=== PATIENT | female | born 1960 | race Caucasian/White ===

== ENCOUNTER 2020-04-07 23:35 | Inpatient (IN) ==
--- OUTSIDE RECORDS SUMMARY | 2020-04-07 23:39 | External Medical Summary | Continuity of Care Document ---
:1960 Author Name Demetria Del Angel Address Unavailable Unavailable , Care Team Providers Name Role Phone Dulce Lindo [email or web address] PCP, UNKNOWN Unavailable Unavailable Problems Active medical history not documented Allergies and Adverse Reactions Allergy history not documented Medications Medications not documented Procedures Procedures not documented Immunizations Immunizations not documented Plan of Treatment Planned Observations Planned Goals not documented Results No Known Results Results not documented
[2020-04-07] MEDS ORDERED: KETOROLAC 30 MG/ML VIAL IV STA (23:52)
--- NOTE | 2020-04-07 23:52 | Emergency Department Note ---
History of Present Illness General Chief Complaint: Chest Pain Stated Complaint: CHEST PAIN Time Seen by Provider: 04/07/20 23:39 Source: patient Mode of arrival: ambulatory Limitations: no limitations History of Present Illness Provider Complaint: chest pain This is a 60-year-old female who presents to the ED with a chief complaint of right-sided chest pain that started at 1 PM today. She states that it is worse with inspiration. She went home and took a nap after work and woke up around 10 PM with a 10 out of 10 chest pain that she describes as sharp in her right chest that radiates to the right shoulder and worse with inspiration. Denies any pain or swelling in the legs but did have some calf pain yesterday. She denies any shortness of breath. No fevers. She does have an occasional cough. She rep orts a history of asthma. Home Medications Home Medications Medication Instructions Recorded Confirmed Type albuterol sulfate 2 puff INHALATION Q6H PRN 04/08/20 04/08/20 History Allergies Allergy/AdvReac Type Severity Reaction Status Date / Time aspirin Allergy Unknown Verified 04/08/20 01:22 ibuprofen [From Motrin IB] Allergy Unknown Verified 04/08/20 01:22 oxycodone [From Percodan] Allergy Unknown Verified 04/08/20 01:22 Past Med/Surg History Social History Smoking Status: Former smoker Feels Safe at Home: Yes Review of Systems A total of 10 systems reviewed and were otherwise negative Physical Exam Vital Signs Vital Signs - 24 hr 04/07/20 23:40 04/08/20 00:00 04/08/20 00:01 Temperature 36.8 C Temperature Source Oral Pulse Rate 77 77 73 Pulse Rate [Left Finger] Pulse Rate from SpO2 Sensor 73 Pulse Rhythm Regular Respiratory Rate 20 20 19 Respiratory Effort / Characteristics Non-Labored Spontaneous Respiratory Depth Normal Respiratory Pattern Regular Blood Pressure 107/65 104/64 Blood Pressure [Right Arm] Blood Pressure Mean 79 83 Blood Pressure Mean [Right Arm] Blood Pressure Position Lying Blood Pressure Position [Right Arm] Pulse Oximetry 95 95 94 Oxygen Delivery Method Room Air Room Air Room Air Sepsis Recent Fever Within 48 Hours No Sepsis New/Unexplained Change in Mental Status N/A Sepsis Action Taken by Nursing No Action Required 04/08/20 00:52 Temperature Temperature Source Pulse Rate Pulse Rate [Left Finger] 59 L Pulse Rate from SpO2 Sensor Pulse Rhythm Respiratory Rate 20 Respiratory Effort / Characteristics Respiratory Depth Respiratory Pattern Blood Pressure Blood Pressure [Right Arm] 101/66 Blood Pressure Mean Blood Pressure Mean [Right Arm] 77 Blood Pressure Position Blood Pressure Position [Right Arm] Sitting Pulse Oximetry 96 Oxygen Delivery Method Room Air Sepsis Recent Fever Within 48 Hours Sepsis New/Unexplained Change in Mental Status Sepsis Action Taken by Nursing CONSTITUTIONAL/VITAL SIGNS: Reviewed / noted above. GENERAL: Non-toxic in appearance. INTEGUMENTARY: Warm, dry, and [place]. HEAD: Normocephalic. EYES: without scleral icterus or trauma. ENT/OROPHARYNX: clear and moist. LYMPHADENOPATHY/NECK: Is supple without lymphadenopathy or meningismus. RESPIRATORY: Lungs clear and equal. CARDIOVASCULAR: Regular rate and rhythm. GI/ABDOMEN: Soft and nontender. No organomegaly or pulsatile mass. No rebound or guarding. Normal bowel sounds. EXTREMITIES: Warm and well perfused. BACK: No CVA tenderness. NEUROLOGICAL: Intact without focal deficits. PSYCHIATRIC: normal affect. MUSCULOSKELETAL: Normally developed with good muscle tone. TRIAGE NURSING DOCUMENTATION REVIEWED. Course Administered Medications Discontinued Medications Ioversol (Optiray 320 125ml) 125 ml IV ONCE ONE Stop: 04/08/20 00:50 Last Admin: 04/08/20 00:49 Dose: 81 ml Documented by: [id number] Ketorolac Tromethamine (Ketorolac 30 Mg/Ml Vial) 30 mg IV NOW STA Stop: 04/07/20 23:53 Last Admin: 04/08/20 00:14 Dose: 30 mg Documented by: [id number] Medical Decision Making Differential Diagnosis The differential that was considered includes acute myocardial infarction, acute coronary syndrome, myocarditis, pericarditis, pericardial effusions /tamponade, esophageal perforation, thoracic aortic dissection, pulmonary embolism, pneumonia, pneumothorax, pancreatitis, shingles, acute cholecystitis, perforated abdominal viscus. Medical Records Attestation: I reviewed the patient's medical records. Home Medications Current Medication List: was personally reviewed by me Laboratory Data Attestation: I reviewed the patient's lab results. Result diagrams: 04/07/20 23:41 04/07/20 23:41 Labs: Lab Results 04/07/20 04/07/20 04/07/20 Range/Units 23:41 23:41 23:41 WBC 11.48 H (4.8-10.8) K/uL RBC 4.56 (4.2-5.4) M/uL Hgb 13.5 (12.0-16.0) g/dL Hct 41.3 (37-47) % MCV 90.6 (80-100) fL MCH 29.6 (25-34) pg MCHC 32.7 (32-36) g/dL RDW Std Deviation 45.0 (36.4-46.3) fL RDW Coeff of Kendra 13.6 (11.5-14.5) % Plt Count 219 (130-400) K/uL MPV 11.6 H (7.4-10.4) fL Immature Gran % (Auto) 0.1 % Neut % (Auto) 78.2 % Lymph % (Auto) 13.3 % [place] % (Auto) 7.7 % Eos % (Auto) 0.6 % Baso % (Auto) 0.1 % Neut # (Auto) 8.98 H (1.4-6.5) K/uL Lymph # (Auto) 1.53 (1.2-3.4) K/uL [place] # (Auto) 0.88 H (0.11-0.59) K/uL Eos # (Auto) 0.07 (0-0.5) K/uL Baso # (Auto) 0.01 (0-0.2) K/uL Immature Gran # (Auto) 0.01 (0.00-0.02) K/uL PT 10.4 (9.0-12.0) Seconds INR 1.0 (0.9-1.1) APTT 28.2 (21.0-31.0) Seconds PTT Ratio 1.0 D-Dimer Cancelled Sodium 140 (136-145) mmol/L Potassium 3.9 (3.5-5.1) mmol/L Chloride 108 H (98-107) mmol/L Carbon Dioxide 27 (21-32) mmol/L Anion Gap 5.0 (3-11) BUN 12 (7-18) mg/dl Creatinine 1.03 (0.6-1.2) mg/dl Est Cr Clr Drug Dosing 54.3 ml/min Est GFR ( Amer) 67.5 Est GFR (Non-Af Amer) 58.2 BUN/Creatinine Ratio 11.4 (10-20) Glucose 114 H (70-99) mg/dl Calcium 8.9 (8.5-10.1) mg/dl Total Bilirubin 0.5 (0.2-1) mg/dl AST 21 (15-37) U/L ALT 42 (12-78) U/L Alkaline Phosphatase 116 (45-117) U/L Troponin I < 0.015 (0-0.045) ng/ml Total Protein 7.7 (6.4-8.2) gm/dl Albumin 3.4 (3.4-5.0) gm/dl Globulin 4.3 H (2.5-4.0) gm/dl Albumin/Globulin Ratio 0.8 L (0.9-2) Lipase 209 (73-393) U/L 04/07/20 Range/Units 23:41 WBC (4.8-10.8) K/uL RBC (4.2-5.4) M/uL Hgb (12.0-16.0) g/dL Hct (37-47) % MCV (80-100) fL MCH (25-34) pg MCHC (32-36) g/dL RDW Std Deviation (36.4-46.3) fL RDW Coeff of Kendra (11.5-14.5) % Plt Count (130-400) K/uL MPV (7.4-10.4) fL Immature Gran % (Auto) % Neut % (Auto) % Lymph % (Auto) % [place] % (Auto) % Eos % (Auto) % Baso % (Auto) % Neut # (Auto) (1.4-6.5) K/uL Lymph # (Auto) (1.2-3.4) K/uL [place] # (Auto) (0.11-0.59) K/uL Eos # (Auto) (0-0.5) K/uL Baso # (Auto) (0-0.2) K/uL Immature Gran # (Auto) (0.00-0.02) K/uL PT (9.0-12.0) Seconds INR (0.9-1.1) APTT (21.0-31.0) Seconds PTT Ratio D-Dimer 1090 H* Sodium (136-145) mmol/L Potassium (3.5-5.1) mmol/L Chloride (98-107) mmol/L Carbon Dioxide (21-32) mmol/L Anion Gap (3-11) BUN (7-18) mg/dl Creatinine (0.6-1.2) mg/dl Est Cr Clr Drug Dosing ml/min Est GFR ( Amer) Est GFR (Non-Af Amer) BUN/Creatinine Ratio (10-20) Glucose (70-99) mg/dl Calcium (8.5-10.1) mg/dl Total Bilirubin (0.2-1) mg/dl AST (15-37) U/L ALT (12-78) U/L Alkaline Phosphatase (45-117) U/L Troponin I (0-0.045) ng/ml Total Protein (6.4-8.2) gm/dl Albumin (3.4-5.0) gm/dl Globulin (2.5-4.0) gm/dl Albumin/Globulin Ratio (0.9-2) Lipase (73-393) U/L Imaging Data Chest x-ray: Attestation: I personally reviewed and interpreted this imaging study as follows: My impression: Chest x-ray: Per my interpretation is negative for acute disease Radiologist's impression: CT scan of the chest: Filling defects identified in the right middle lobe and right lower lobe consistent with pulmonary emboli. ECG Data Attestation: I personally reviewed and interpreted this ECG as follows: Indication: chest pain Rate (beats per minute): 78 Rhythm: normal sinus Findings: no PVC and no ST elevation MDM Narrative The patient has a pleuritic right-sided chest pain. Her twelve-lead EKG shows a normal sinus rhythm. Her exam was relatively unremarkable. CBC is normal. Chemistry panel was unremarkable. Troponin is negative. Lipase is negative. D-dimer is elevated at 1090. CT scan of the chest: Shows findings suggesting right sided middle and lower lobe pulmonary emboli. The patient was started on IV heparin. She will be seen by the hospitalist for further inpatient evaluat ion and care. Impression & Plan Pulmonary emboli Discharge Plan Visit Data Chief Complaint: Chest Pain Stated Complaint: CHEST PAIN ED Provider: Mateo Mariscal Discharge Problem: Pulmonary emboli Patient Disposition: Being Evaluated by Hospitalist Forms Stand Alone Forms: My [facility] Prescriptions Prescriptions: No Action albuterol sulfate 90 mcg/actuation Hfa Aerosol Inhaler 2 puff INHALATION Q6H PRN (Reason: Shortness Of Breath Or Wheezing) RF: 0 Referrals Referrals: Dirk Hu MD [Primary Care Provider] - Discharge Problem: Pulmonary emboli Qualifiers: Pulmonary embolism type: multiple subsegmental (without acute cor pulmonale) Qualified Code(s): I26.94 - Multiple subsegmental pulmonary emboli without acute cor pulmonale
[2020-04-07 23:53] LABS: Basophils # (auto) 0.01 K/uL (0-0.2); Basophils % (auto) 0.1 %; Eosinophils # (auto) 0.07 K/uL (0-0.5); Eosinophils % (auto) 0.6 %; Hematocrit (blood only) 41.3 % (37-47); Hemoglobin 13.5 g/dL (12.0-16.0); Immature Granulocytes # (auto) 0.01 K/uL (0.00-0.02); Immature Granulocytes % (auto) 0.1 %; Lymphocytes # (auto) 1.53 K/uL (1.2-3.4); Lymphocytes % (auto) 13.3 %; Mean Corpuscular Hemoglobin 29.6 pg (25-34); Mean Corpuscular Hgb Conc 32.7 g/dL (32-36); Mean Corpuscular Volume 90.6 fL (80-100); Mean Platelet Volume 11.6 fL (7.4-10.4); Monocytes # (auto) 0.88 K/uL (0.11-0.59); Monocytes % (auto) 7.7 %; Neutrophils # (auto) 8.98 K/uL (1.4-6.5); Neutrophils % (auto) 78.2 %; Platelet Count 219 K/uL (130-400); RDW Coefficient of Variation 13.6 % (11.5-14.5); Red Blood Count 4.56 M/uL (4.2-5.4); White Blood Count 11.48 K/uL (4.8-10.8)
[2020-04-08 00:03] LABS: Partial Thromboplastin Time 28.2 Seconds (21.0-31.0); Prothrombin Time 10.4 Seconds (9.0-12.0)
[2020-04-08 00:14] LABS: Alanine Aminotransferase 42 U/L (12-78); Albumin Level 3.4 gm/dl (3.4-5.0); Aspartate Aminotransferase 21 U/L (15-37); BUN Creatinine Ratio 11.4 (10-20); Blood Urea Nitrogen 12 mg/dl (7-18); Calcium 8.9 mg/dl (8.5-10.1); Carbon Dioxide 27 mmol/L (21-32); Chloride 108 mmol/L (98-107); Creatinine Clr Calc Pharmacy 54.3 ml/min; Est GFR (African American) 67.5; Est GFR (Non-African American) 58.2; Glucose 114 mg/dl (70-99); Lipase 209 U/L (73-393); Potassium 3.9 mmol/L (3.5-5.1); Sodium 140 mmol/L (136-145)
[2020-04-08 00:19] LABS: Albumin Globulin Ratio 0.8 (0.9-2); Alkaline Phosphatase 116 U/L (45-117); Bilirubin,Total 0.5 mg/dl (0.2-1); Globulin 4.3 gm/dl (2.5-4.0); Total Protein 7.7 gm/dl (6.4-8.2); Troponin I < 0.015 ng/ml (0-0.045)
[2020-04-08 00:24] LABS: D Dimer 1090 ug/L FEU (0-500)
[2020-04-08] MEDS ORDERED: OPTIRAY 320 125ml IV ONE (00:49)
[2020-04-08] MEDS ORDERED: HEPARIN SOD 5,000 UNIT/0.5 ML VIAL ONE (01:51)
[2020-04-08] MEDS ORDERED: Heparin BOLUS **ED Use Only IV STA (02:16)
[2020-04-08] MEDS: HEPARIN SODIUM/DEXTROSE 25,000 UNITS/500 ML BAG IV SCH (02:21)
[2020-04-08] MEDS ORDERED: HYDROmorphone INJ 0.5 MG/0.5 ML SYR IV PRN (03:29)
[2020-04-08] MEDS ORDERED: ONDANSETRON INJ 2 MG/ML 2 ML VIAL ONE (03:53)
[2020-04-08] MEDS ORDERED: ONDANSETRON INJ 2 MG/ML 2 ML VIAL IV STA (03:54)
--- NOTE | 2020-04-08 04:45 | History and Physical Report ---
DATE OF ADMISSION: 04/07/2020 CHIEF COMPLAINT: Chest pain. HISTORY OF PRESENT ILLNESS: This is a 60-year-old female with past medical history significant for allergic rhinitis, asthma, history of premature beats, irritable bowel syndrome, history of calculus of kidney , history of Lyme disease in the past, who comes because of right-sided chest pain. 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 Today after work she came home and went to sleep and when woke up around 1:00pm in the afternoon, she had severe chest pain in the right side radiating to the right shoulder, it was 6/10 in severity, associated with shortness of breath and some nausea. When it was not getting better, she came to the ER and found to have PE. The patient says when she went to bathroom and came back, she was short of breath and she was having significant pain. Hemodynamics were stable. Denies any headache, no blurred vision, no earache. She has some runny nose and attributes it to her allergies and some mild sore throat due to postnasal drip. She has occasional cough from her asthma. She denies any loss of sense of smell or taste. She states since she works in the ER, she was tested for COVID 2 weeks ago and was negative as per the patient. No abdominal pain. Normal bowel and bladder movements. No hematuria, no blood in stools or black stools. She had some right calf pain a few days back, but that has resolved. No swelling in the legs. ALLERGIES: ASPIRIN, IBUPROFEN, PERCODAN. PAST MEDICAL HISTORY: As mentioned above. PAST SURGICAL HISTORY: Cardiac ablation for Nahlp-Aafawvukb-Bdfwu syndrome, colonoscopy, colposcopy, cyrocautery of cervix, cystoscopy, laparoscopic cholecystectomy, appendectomy. MEDICATIONS: Albuterol 2 puffs inhalation q. 6 hours p.r.n. FAMILY HISTORY: Significant for mother has heart disorder, hypertension; father had calculi; maternal grandfather has history of TB; sister has allergies and asthma. SOCIAL HISTORY: Lives with daughter and grandchildren. Quit smoking in 1984. Alcohol occasionally. No drug use. REVIEW OF SYSTEMS: As per HPI. Rest of the review of systems negative. PHYSICAL EXAMINATION: GENERAL: The patient is of moderate build, not in acute distress. VITAL SIGNS: Temperature 36.8, pulse 64, respiratory rate 19, blood pressure 107/68, oxygen 95% on room air. HEENT: Pupils equal, round, and reactive to light. Oral mucosa moist. NECK: No JVD, no neck masses. CARDIOVASCULAR: S1, S2 heard, regular rate and rhythm, no murmur, no gallop. RESPIRATORY SYSTEM: Normal AP diameter. No accessory muscle use. No wheezing, no crackles. ABDOMEN: Soft, bowel sounds present. Nontender. No distention. CENTRAL NERVOUS SYSTEM: Cranial nerves II-XII grossly intact, nonfocal. EXTREMITIES: No edema, no erythema seen. No calf tenderness present. LABORATORY DATA: WBC 11.4, hemoglobin 13.5, hematocrit 41.3, platelets 219. PT 10.4, INR 1, APTT 28.2. D-dimer 1090. Sodium 140, potassium 3.9, chloride 108, bicarbonate 27, BUN 12, creatinine 1.03, serum glucose 114, calcium 8.9, total bilirubin 0.5, AST 21, ALT 42, alkaline phosphatase 116. Troponin I less than 0.015. Lipase 209. IMAGING DATA: Chest x-ray, no acute findings seen. CTA of the chest preliminary report , filling defects identified within the proximal anterior segmental branches of the right middle lobe and the lateral segmental branch of the right lower lobe consistent with pulmonary emboli. Bilateral lower lobe atelectasis, trace amount of right-sided pleural effusion. EKG: Normal sinus rhythm, rate of 78. ASSESSMENT AND PLAN: A 61-year-old female who presents with chest pain and found to have acute pulmonary embolism. 1. Chest pain and acute right-sided pulmonary embolism. We will follow the final report of the CAT scan. Started on IV heparin in the ER, which will be continued. To follow with primary care physician for hypercoagulable workup. No family history of blood clots. The patient is currently working and seems to be active. Checked for Covid as she is working in ER and it was negative. Pain control. Coumadin vs novel agents to be determined Will follow lower extremity Doppler and echo.. 2. Asthma. Continue albuterol p.r.n. 3. Deep venous thrombosis prophylaxis, on IV heparin. DISPOSITION: Admit to [facility]. Expect to discharge home and follow with family doctor. Level 1 full code. MTDD
[2020-04-08] MEDS ORDERED: NITROGLYCERIN SL 0.4 MG/TAB TAB SL PRN (06:29)
[2020-04-08] MEDS ORDERED: ONDANSETRON INJ 2 MG/ML 2 ML VIAL IV PRN (06:29)
[2020-04-08] MEDS ORDERED: ALBUTEROL HFA 8 GM INHALER INH PRN (06:29)
[2020-04-08] MEDS ORDERED: POLYETHYLENE (MIRALAX) 17 GM PACK PO PRN (06:29)
[2020-04-08 07:03] LABS: Basophils # (auto) 0.02 K/uL (0-0.2); Basophils % (auto) 0.2 %; Eosinophils # (auto) 0.02 K/uL (0-0.5); Eosinophils % (auto) 0.2 %; Hematocrit (blood only) 39.2 % (37-47); Hemoglobin 12.8 g/dL (12.0-16.0); Immature Granulocytes # (auto) 0.02 K/uL (0.00-0.02); Immature Granulocytes % (auto) 0.2 %; Lymphocytes # (auto) 0.88 K/uL (1.2-3.4); Lymphocytes % (auto) 7.1 %; Mean Corpuscular Hemoglobin 29.4 pg (25-34); Mean Corpuscular Hgb Conc 32.7 g/dL (32-36); Mean Corpuscular Volume 90.1 fL (80-100); Mean Platelet Volume 10.8 fL (7.4-10.4); Monocytes # (auto) 0.81 K/uL (0.11-0.59); Monocytes % (auto) 6.5 %; Neutrophils # (auto) 10.64 K/uL (1.4-6.5); Neutrophils % (auto) 85.8 %; Platelet Count 188 K/uL (130-400); RDW Coefficient of Variation 13.5 % (11.5-14.5); RDW Standard Deviation 44.4 fL (36.4-46.3); Red Blood Count 4.35 M/uL (4.2-5.4); White Blood Count 12.39 K/uL (4.8-10.8)
[2020-04-08] MEDS: ACETAMINOPHEN 325 MG TAB PO PRN ×3 (07:20→21:57)
--- NOTE | 2020-04-08 07:35 | XRay Report ---
XR chest 1V portable CLINICAL HISTORY: Atypical chest pain COMPARISON STUDY: No previous studies for comparison. FINDINGS: The heart is the upper limits of normal in size. There are low lung volumes with bibasilar atelectasis/consolidation. There is slight interstitial prominence without evidence of overt failure. [ IMPRESSION: Low lung volumes with bibasilar atelectasis/consolidation. ACT 112: Negative or not required by law. Electronically signed by: Mickey Briones M.D. 04/08/2020 7:34 AM
[2020-04-08 07:39] LABS: Creatinine Clr Calc Pharmacy 54.5 ml/min; Est GFR (African American) 67.5; Est GFR (Non-African American) 58.2; Magnesium 2.3 mg/dl (1.8-2.4); Potassium 3.9 mmol/L (3.5-5.1)
--- NOTE | 2020-04-08 08:26 | CT Scan Report ---
CHEST CTA for PULMONARY ARTERIES CT DOSE: 305.65 mGy.cm HISTORY: Right-sided chest pain. TECHNIQUE: Multiaxial CT images of the chest were performed following the intravenous administration of contrast to evaluate the pulmonary arteries. Maximal intensity projection images were also obtaine d. A dose lowering technique was utilized adhering to the principles of ALARA. COMPARISON STUDY: Chest 04/07/2020. FINDINGS: Normal caliber thoracic aorta with no evidence for dissection. The heart is mildly enlarged . There is mild enlargement of the right ventricle with flattening of the interventricular septum. Tr alen right pleural effusion. No pericardial effusion. Filling defects seen within the segmental pulmon jesús arteries of the right lower and right middle lobes consistent with pulmonary emboli. Limited view s of the upper abdomen demonstrate normal liver and spleen. No mediastinal hilar lymphadenopathy. No suspicious lytic or blastic osseous lesions. The central airways are patent. No pneumothorax. There i s a focal peripheral wedge-shaped groundglass density within the right middle lobe measuring 4.6 cm. This favors a pulmonary infarct. The remaining bibasilar patchy and linear densities are nonspecific but favor atelectasis. A pneumonia could also have a similar appearance in the appropriate clinical s etting. IMPRESSION: 1. Right-sided pulmonary emboli with evidence for mild right-sided heart strain. 2. A focal peripheral wedge-shaped groundglass opacity within the right middle lobe consistent with a pulmonary infarct 3. Remaining bibasilar patchy and linear densities are nonspecific but favor atelectasis. A pneumonia could also have a similar appearance in the appropriate clinical setting. 4. Trace right pleural effusion. ACT 112: Negative or not required by law. Electronically signed by: Homer Banks M.D. 04/08/2020 8:25 AM
--- NOTE | 2020-04-08 08:35 | Electrocardiogram Report ---
Test Reason : Blood Pressure : / mmHG Vent. Rate : 055 BPM Atrial Rate : 055 BPM P-R Int : 204 ms QRS Dur : 094 ms QT Int : 426 ms P-R-T Axes : 067 007 030 degrees QTc Int : 407 ms Sinus bradycardia Incomplete right bundle branch block Borderline ECG When compared with ECG of 07-APR-2020 23:42, No significant change was found Confirmed by Bernardo Louise ([id number]) on 04/08/2020 8:35:14 AM Referred By: REFERRED SELF Confirmed By:Bernardo Louise
--- NOTE | 2020-04-08 08:37 | Electrocardiogram Report ---
Test Reason : Blood Pressure : / mmHG Vent. Rate : 078 BPM Atrial Rate : 078 BPM P-R Int : 170 ms QRS Dur : 088 ms QT Int : 362 ms P-R-T Axes : 041 -03 013 degrees QTc Int : 412 ms Normal sinus rhythm Normal ECG When compared with ECG of 17-DEC-2003 07:34, No significant change was found Confirmed by Bernardo Louise ([id number]) on 04/08/2020 8:36:45 AM Referred By: REFERRED SELF Confirmed By:Bernardo Louise
--- NOTE | 2020-04-08 08:43 | Ultrasound Report ---
BILATERAL LOWER EXTREMITY VENOUS DOPPLER HISTORY: Acute pulmonary emboli. Assess for DVT. COMPARISON STUDY: Venous Doppler 12/22/2007. FINDINGS: The bilateral common femoral, superficial femoral, popliteal veins appear patent. There is slow flow identified within the bilateral popliteal veins. The left calf vessels appear patent. There is a 2.0 x 1.1 x 1.3 cm oval-shaped hypoechoic intramuscular lesion adjacent to the left mid superfi cial femoral vein. The bilateral anterior tibial, posterior tibial, peroneal veins are patent. Thromb osed intramuscular veins within the right calf. These appear to represent superficial rather than ena p veins. IMPRESSION: No definite DVT within the right or left lower extremity. There are thrombosed intramuscular veins wi thin the right calf which appear to represent superficial rather than deep veins. 2. A 2.0 x 1.3 x 1.1 cm intramuscular hypoechoic lesion within the mid left thigh. This is indetermin ate but could represent a mass. Nonemergent contrast enhanced MRI of the left thigh is recommended fo r further evaluation. ACT 112: Negative or not required by law. Electronically signed by: Homer Banks M.D. 04/08/2020 8:42 AM
[2020-04-08 10:22] LABS: Partial Thromboplastin Ratio 3.2
[2020-04-08 10:34] LABS: Partial Thromboplastin Time 88.3 Seconds (21.0-31.0)
--- NOTE | 2020-04-08 13:16 | XCELERA ---
[id number]
[2020-04-08] MEDS ORDERED: methylPREDNISolone 40 MG in SYRINGE 0 ML IV ONE (14:45)
[2020-04-08 17:39] LABS: Partial Thromboplastin Ratio 2.5
[2020-04-08 17:44] LABS: Partial Thromboplastin Time 69.4 Seconds (21.0-31.0)
[2020-04-08] MEDS ORDERED: GADOBUTROL 65ML VIAL IV ONE (21:28)
--- NOTE | 2020-04-08 23:49 | Hospitalist Progress Note ---
Date of Service April 08, 2020 Assessment & Plan (1) Pulmonary emboli: Presented with right pleuritic chest pain and right calf pain. CTA demonstrated segmental pulmonary emboli RLL and RML as well as probable pulmonary infarct. = acute pulmonary embolism, present on admission. Started on IV heparin. Venous duplex demonstrated thrombosed calf veins. Echocardiogram showed mildly dilated RV, trace TR, normal RV pressures. Dilated RV could be acute or chronic; history of mild asthma, no history of sleep apnea Etiology of VTE unknown- no recent travel or other immobility no recent surgery no personal or family history of VTE no personal history of malignancy; routine cancer screening current Venous duplex demonstrated left medial thigh mass as discussed below, MRI pending. If MRI concerning, may be best to obtain tissue diagnosis during this hospitalization, before starting long-acting anticoagulant. Continue IV heparin until diagnostic strategy determined, then transition to oral agent (probably DOAC if no financial obstacles). Analgesics as needed for pleuritic chest pain; may benefit from short course of steroids. Evaluation for hypercoagulable conditions not appropriate in acute setting. Outpatient Hematology consultation recommended regarding evaluation and duration of therapy. Maintain routine cancer screening. Check repeat CT chest in about 6 weeks to make certain that presumed pulmonary infarct resolves. Check repeat echo in about 6 months regarding dilated RV. (2) Abnormal finding on diagnostic imaging of extremity: 2 cm soft tissue mass left medial thigh incidentally noted on venous duplex. Check MRI for further characterization. Consult General Surgery to consider biopsy if MRI worrisome. (3) DVT prophylaxis: Receiving IV heparin for acute VTE. (4) Discharge planning issues: Anticipated discharge to home. Family Medicine follow-up with Dr. Hu. Admission and Anticipated Discharge Date Admission Date: April 08, 2020 Subjective Recheck for pulmonary embolism. Patient seen in their room around 1400. Admitted early this morning with pulmonary embolism. Still having fairly severe right pleuritic chest pain. No significant cough or SOB. Review of Systems: Constitutional- no fever. Cardiac- no chest pain. Pulmonary- as noted above. GI- no nausea, vomiting, diarrhea, melena, hematochezia. - no hematuria. Otherwise, as noted above. Physical Exam Constitutional: no acute distress Respiratory: no respiratory distress Auscultation: lungs clear to auscultation bilaterally (no pleural rub appreciated) Cardiovascular: Rate/Rhythm: regular rate and regular rhythm Vessels: no JVD Extremities: no calf tenderness and no edema Gastrointestinal (Abdomen): normal bowel sounds, soft, nontender, no hepatosplenomegaly Musculoskeletal: Extremities: no cyanosis Skin: no rashes, warm and dry Psychiatric: Orientation: alert and oriented x 3 Results & Data Results & Data ([facility]) Vital Signs (Past 12 Hours) Vital Signs Temp Pulse Pulse Resp BP BP Pulse Ox 04/08/20 23:38 36.5 C 67 18 98/63 L 92 04/08/20 19:38 37.1 C 71 18 104/68 91 04/08/20 16:01 36.6 C 68 20 107/71 97 04/08/20 15:00 65 (1) Pulmonary emboli Pulmonary embolism type: multiple subsegmental (without acute cor pulmonale) Qualified Code(s): I26.94 - Multiple subsegmental pulmonary emboli without acute cor pulmonale
[2020-04-09 00:16] LABS: Partial Thromboplastin Ratio 2.2
[2020-04-09 00:20] LABS: Partial Thromboplastin Time 62.6 Seconds (21.0-31.0)
[2020-04-09] MEDS: HEPARIN SODIUM/DEXTROSE 25,000 UNITS/500 ML BAG IV SCH (00:32)
[2020-04-09 06:40] LABS: Partial Thromboplastin Ratio 2.4
[2020-04-09 06:50] LABS: Partial Thromboplastin Time 66.9 Seconds (21.0-31.0)
--- NOTE | 2020-04-09 07:54 | Magnetic Resonance Report ---
MR femur LT wo/w con HISTORY: soft tissue mass L medial thigh on venous duplex TECHNIQUE: Multiplanar multisequence MRI of the left thigh was performed both before and after the in travenous administration of 7.7 cc of Gadavist contrast. COMPARISON STUDY: Lower extremity venous Doppler 04/08/2020. FINDINGS: There is an 18 x 9 x 9 mm T2 hyperintense enhancing mass within the medial aspect of the mi d left thigh which corresponds the ultrasound abnormality. This is intramuscular and located within t he sartorius muscle. This is best seen on axial image 28 and coronal image 15. Evidence for a split f at sign. Therefore, this is consistent with a small peripheral nerve sheath tumor. Normal marrow sign al intensity within the left femur. No fracture or dislocation. IMPRESSION: Confirmation of the 18 x 9 x 9 mm intramuscular lesion within the mid left thigh which likely represe nts a small peripheral nerve sheath tumor. ACT 112: Negative or not required by law. Electronically signed by: Homer Banks M.D. 04/09/2020 7:53 AM
[2020-04-09] MEDS: predniSONE 20 MG TAB PO SCH (08:39)
[2020-04-09] MEDS: PANTOprazole 40 MG TAB PO SCH (08:39)
[2020-04-09] MEDS: ACETAMINOPHEN 325 MG TAB PO PRN ×3 (10:03→20:13)
--- NOTE | 2020-04-09 11:23 | Surgery Consultation ---
Date of Consultation April 09, 2020 Assessment & Plan (1) Abnormal finding on diagnostic imaging of extremity: Nerve sheath tumor excision is not performed by our surgeons. We discussed the imaging with radiology, and would recommend outpatient referral. Supervising Physician Co-Signing Physician Notes I personally saw the patient with Chris Muniz PA-C and agree with the assessment and plan 60 yo female with acute PE's and incidentally found PNST of left thigh -Discussed case with radiology and MRI findings suggest benign PNST -Would recommend an outpatient follow up to discuss excision, possibly with Orthopedics if they typically resect these lesions History of Present Illness Attending Physician: Nate Saucedo MD History of Present Illness 60 y/o female presented to ED 2 nights ago with chest pain and found to have bilat PEs. 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 She does not have any symptoms or masses. Denies any pain. Allergies Allergy/AdvReac Type Severity Reaction Status Date / Time aspirin Allergy Unknown Verified 04/08/20 01:22 ibuprofen [From Motrin IB] Allergy Unknown Verified 04/08/20 01:22 oxycodone [From Percodan] Allergy Unknown Verified 04/08/20 01:22 Home Medications Home Medications Medication Instructions Recorded Confirmed Type albuterol sulfate 2 puff INHALATION Q6H PRN 04/08/20 04/08/20 History Patient History Social History Smoking Status: Never smoker Hx Alcohol Use: Yes Hx Substance Use: No Preferred Language: Palauan Communication Ability: Effective Account Representative Required: No Beliefs That Will Affect Care: None Current Living Situation: Family Other Information That Helps Us Care for You: No Feels Safe at Home: Yes Safety Concerns: Feels Safe At This Time Assistive Devices: None Review of Systems Review of Systems: All systems reviewed & are unremarkable except as noted in HPI & below Constitutional: no fever and no chills Physical Exam Constitutional: WD/WN, vitals as above Eyes: PERRL, conjunctivae normal, anicteric sclerae ENMT: external ear and nose normal, oropharynx normal Neck: trachea midline, no thyromegaly Respiratory: normal respiratory effort, lungs clear to auscultation Cardiovascular: RRR, no murmur, no edema Gastrointestinal (Abdomen): Inspection/Auscultation: abdomen normal to inspection; abdomen not distended Percussion/Palpation: abdomen soft; abdomen nontender and no guarding Musculoskeletal: no palpable masses or tenderness left thigh Skin: no rashes, warm and dry Psychiatric: A+Ox3, euthymic affect Results & Data ([facility]) Vital Signs (Past 12 Hours) Vital Signs Temp Pulse Pulse Resp BP BP Pulse Ox 04/09/20 07:58 36.7 C 64 16 94/61 L 93 04/09/20 07:26 55 L 04/09/20 04:11 36.5 C 58 L 16 95/58 L 95 04/08/20 23:38 36.5 C 67 18 98/63 L 92 PG Care Time/CCT Total # of Minutes Spent Total Time Spent with Patient: Total time spent is greater than 50% in coordination of care (as documented) at patient's floor/unit and/or counseling patient: Coding Level of Care Code 28101 Inpt Consult Level 2 Diagnoses Abnormal finding on diagnostic imaging of extremity R93.6
[2020-04-09 13:35] LABS: Partial Thromboplastin Ratio 1.7
[2020-04-09 13:39] LABS: Partial Thromboplastin Time 46.5 Seconds (21.0-31.0)
--- NOTE | 2020-04-09 17:27 | Ultrasound Report ---
ULTRASOUND LEFT LOWER EXTREMITY ARTERIAL CLINICAL HISTORY: Left thigh soft tissue mass. COMPARISON STUDY: MRI of the left femur and left lower extremity venous ultrasound dated 04/08/2020. FINDINGS: Real-time, grayscale, and color Doppler sonography of the arteries of the left thigh is per formed to evaluate the site of interest adjacent to a known soft tissue lesion. Again seen is a hypoe choic ovoid soft tissue lesion at this site. This measures 2.0 x 1.1 x 1.3 cm. This is discrete from the adjacent superficial femoral artery. The adjacent superficial femoral artery is patent and demons trates normal triphasic waveforms. Velocities within the superficial femoral artery measure up to 112 cm/s. IMPRESSION: 1. There is unchanged appearance of a 2.0 cm soft tissue nodule as compared to recent prior studies. This was better characterized on the recent MRI. 2. There is no vascular connection to this lesion. 3. The adjacent superficial femoral artery is normal in appearance and widely patent. Electronically signed by: Bob Chaudhary M.D. 04/09/2020 5:26 PM
--- NOTE | 2020-04-09 17:49 | Hospitalist Progress Note ---
Date of Service April 09, 2020 Assessment & Plan (1) Pulmonary emboli: Acute pulmonary emboli Pulmonary Infarct --CTA:Right-sided pulmonary emboli with evidence for mild right-sided heart strain. A focal peripheral wedge-shaped groundglass opacity within the right middle lobe consistent with a pulmonary infarct. Remaining bibasilar patchy and linear densities are nonspecific but favor atelectasis. A pneumonia could also have a similar appearance in the appropriate clinical setting. Trace right pleural effusion. --Venous Doppler:No definite DVT within the right or left lower extremity. There are thrombosed intramuscular veins within the right calf which appear to represent superficial rather than deep veins. A 2.0 x 1.3 x 1.1 cm intramuscular hypoechoic lesion within the mid left thigh. This is indeterminate but could represent a mass. Nonemergent contrast enhanced MRI of the left thigh is recommended for further evaluation. --No precipitating events --Hypercoagulable work-up as outpatient --Continue IV heparin --[facility] --Continue prednisone taper --Needs repeat CT chest in 6 weeks as outpatient --Needs repeat ECHO as outpatient to evaluate dilated RV resolution Leukocytosis Secondary to Steroids Monitor (2) Abnormal finding on diagnostic imaging of extremity: Soft tissue mass left medial thigh Incidentally noted on venous duplex --Leg MRI:Confirmation of the 18 x 9 x 9 mm intramuscular lesion within the mid left thigh which likely represents a small peripheral nerve sheath tumor. --Arterial Doppler:There is unchanged appearance of a 2.0 cm soft tissue nodule as compared to recent prior studies. This was better characterized on the recent MRI. There is no vascular connection to this lesion. The adjacent superficial femoral artery is normal in appearance and widely patent. --Venous Doppler as above --Appreciate surgery input --Discussed with neurosurgery Dr.Nir Beckford--Janice Ramos --Needs follow-up with neurosurgery as outpatient in 8 weeks (3) DVT prophylaxis: On IV heparin (4) Discharge planning issues: Anticipated discharge to home. Family Medicine follow-up with Dr. Hu. Admission and Anticipated Discharge Date Admission Date: April 08, 2020 Subjective Patient is seen and examined at bedside Pleuritic chest pain improved Reports mild nonproductive cough Denies dizziness, nausea, abdominal pain, bleeding issues Discussed with Rachel vee Offers no other complaints Review of Systems Review of Systems: All systems reviewed & are unremarkable except as noted in HPI & below Physical Exam Physical Exam: Physical Exam: Vitals signs as noted above General Appearance:Moderately built and nourished, no apparent distress Head: normocephalic, Atraumatic Eyes: normal inspection, EOMI Neck: supple, Trachea midline Respiratory/Chest: Normal breath sounds, CTA Cardiovascular: S1, S2, No murmur Abdomen/GI:Soft, Non tender, Bowel sounds present Extremities/Musculoskelatal:normal inspection, no edema Neurologic/Psych:AAOX3, grossly no focal neurological deficits Skin: normal color, warm Results & Data Results & Data ([facility]) Vital Signs (Past 12 Hours) Vital Signs Temp Pulse Pulse Resp BP Pulse Ox 04/09/20 16:00 68 04/09/20 15:11 36.6 C 90 16 117/52 L 92 04/09/20 11:25 36.8 C 71 16 111/76 93 04/09/20 07:58 36.7 C 64 16 94/61 L 93 04/09/20 07:26 55 L (1) Pulmonary emboli Pulmonary embolism type: multiple subsegmental (without acute cor pulmonale) Qualified Code(s): I26.94 - Multiple subsegmental pulmonary emboli without acute cor pulmonale
[2020-04-10] MEDS: HEPARIN SODIUM/DEXTROSE 25,000 UNITS/500 ML BAG IV SCH (01:47)
[2020-04-10 07:14] LABS: Basophils # (auto) 0.02 K/uL (0-0.2); Basophils % (auto) 0.2 %; Eosinophils # (auto) 0.03 K/uL (0-0.5); Eosinophils % (auto) 0.3 %; Hematocrit (blood only) 36.6 % (37-47); Hemoglobin 11.9 g/dL (12.0-16.0); Immature Granulocytes # (auto) 0.03 K/uL (0.00-0.02); Immature Granulocytes % (auto) 0.3 %; Lymphocytes # (auto) 2.18 K/uL (1.2-3.4); Lymphocytes % (auto) 21.5 %; Mean Corpuscular Hemoglobin 29.5 pg (25-34); Mean Corpuscular Hgb Conc 32.5 g/dL (32-36); Mean Corpuscular Volume 90.6 fL (80-100); Mean Platelet Volume 11.3 fL (7.4-10.4); Monocytes # (auto) 0.64 K/uL (0.11-0.59); Monocytes % (auto) 6.3 %; Neutrophils # (auto) 7.22 K/uL (1.4-6.5); Neutrophils % (auto) 71.4 %; Platelet Count 182 K/uL (130-400); RDW Coefficient of Variation 13.7 % (11.5-14.5); RDW Standard Deviation 45.7 fL (36.4-46.3); Red Blood Count 4.04 M/uL (4.2-5.4); White Blood Count 10.12 K/uL (4.8-10.8)
[2020-04-10 07:37] LABS: Partial Thromboplastin Ratio 2.1
[2020-04-10 07:38] LABS: Partial Thromboplastin Time 58.9 Seconds (21.0-31.0)
[2020-04-10] MEDS: PANTOprazole 40 MG TAB PO SCH (07:44)
[2020-04-10] MEDS: predniSONE 20 MG TAB PO SCH (07:44)
[2020-04-10] MEDS: ACETAMINOPHEN 325 MG TAB PO PRN (07:45)
[2020-04-10 07:48] LABS: BUN Creatinine Ratio 14.6 (10-20); Creatinine Clr Calc Pharmacy 53.6 ml/min; Est GFR (African American) 65.9; Est GFR (Non-African American) 56.9; Magnesium 2.2 mg/dl (1.8-2.4); Potassium 3.9 mmol/L (3.5-5.1)
[2020-04-10] MEDS ORDERED: APIXABAN 5 MG TABLET PO SCH (12:30)
--- NOTE | 2020-04-10 15:12 | Hospitalist Progress Note ---
Date of Service April 10, 2020 Assessment & Plan (1) Pulmonary emboli: Acute pulmonary emboli Pulmonary Infarct --CTA:Right-sided pulmonary emboli with evidence for mild right-sided heart strain. A focal peripheral wedge-shaped groundglass opacity within the right middle lobe consistent with a pulmonary infarct. Remaining bibasilar patchy and linear densities are nonspecific but favor atelectasis. A pneumonia could also have a similar appearance in the appropriate clinical setting. Trace right pleural effusion. --Venous Doppler:No definite DVT within the right or left lower extremity. There are thrombosed intramuscular veins within the right calf which appear to represent superficial rather than deep veins. A 2.0 x 1.3 x 1.1 cm intramuscular hypoechoic lesion within the mid left thigh. This is indeterminate but could represent a mass. Nonemergent contrast enhanced MRI of the left thigh is recommended for further evaluation. --No precipitating events --Hypercoagulable work-up as outpatient --Continue IV heparin>>>Transitioned to Eliquis --Continue prednisone taper --Needs repeat CT chest in 6 weeks as outpatient --Needs repeat ECHO as outpatient to evaluate dilated RV resolution Leukocytosis Secondary to Steroids Monitor Resolved (2) Abnormal finding on diagnostic imaging of extremity: Soft tissue mass left medial thigh Incidentally noted on venous duplex --Leg MRI:Confirmation of the 18 x 9 x 9 mm intramuscular lesion within the mid left thigh which likely represents a small peripheral nerve sheath tumor. --Arterial Doppler:There is unchanged appearance of a 2.0 cm soft tissue nodule as compared to recent prior studies. This was better characterized on the recent MRI. There is no vascular connection to this lesion. The adjacent superficial femoral artery is normal in appearance and widely patent. --Venous Doppler as above --Appreciate surgery input --Discussed with neurosurgery Dr.Nir Beckford--Janice Ramos --Needs follow-up with neurosurgery as outpatient in 8 weeks (3) DVT prophylaxis: Eliquis (4) Discharge planning issues: Anticipated discharge to home. Family Medicine follow-up with Dr. Hu. Admission and Anticipated Discharge Date Admission Date: April 08, 2020 Subjective Patient is seen and examined at bedside Feels better No new complaints Still has some Pleuritic chest pain Denies SOB, dizziness, nausea, abdominal pain Review of Systems Review of Systems: All systems reviewed & are unremarkable except as noted in HPI & below Physical Exam Physical Exam: Physical Exam: Vitals signs as noted above General Appearance:Moderately built and nourished, no apparent distress Head: normocephalic, Atraumatic Eyes: normal inspection, EOMI Neck: supple, Trachea midline Respiratory/Chest: Normal breath sounds, CTA Cardiovascular: S1, S2, No murmur Abdomen/GI:Soft, Non tender, Bowel sounds present Extremities/Musculoskelatal:normal inspection, no edema Neurologic/Psych:AAOX3, grossly no focal neurological deficits Skin: normal color, warm Results & Data Results & Data ([facility]) Vital Signs (Past 12 Hours) Vital Signs Temp Pulse Pulse Resp BP Pulse Ox 04/10/20 11:23 36.5 C 70 18 128/92 95 04/10/20 08:00 58 L 04/10/20 07:00 36.6 C 58 L 18 131/83 94 04/10/20 03:33 36.5 C 65 18 97/58 L 94 Laboratory Results Short CBC 04/10/20 Range/Units 06:49 WBC 10.12 (4.8-10.8) K/uL Hgb 11.9 L (12.0-16.0) g/dL Hct 36.6 L (37-47) % Plt Count 182 (130-400) K/uL BMP 04/10/20 06:49 Sodium 141 Potassium 3.9 Chloride 111 H Carbon Dioxide 27 BUN 15 Creatinine 1.05 Glucose 88 Calcium 9.0 (1) Pulmonary emboli Pulmonary embolism type: multiple subsegmental (without acute cor pulmonale) Qualified Code(s): I26.94 - Multiple subsegmental pulmonary emboli without acute cor pulmonale
--- NOTE | 2020-04-10 15:28 | Discharge Summary ---
Date of Service April 10, 2020 Admission HPI Per Admitting Provider CHIEF COMPLAINT: Chest pain. HISTORY OF PRESENT ILLNESS: This is a 60-year-old female with past medical history significant for allergic rhinitis, asthma, history of premature beats, irritable bowel syndrome, history of calculus of kidney , history of Lyme disease in the past, who comes because of right-sided chest pain. 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 Today after work she came home and went to sleep and when woke up around 1:00pm in the afternoon, she had severe chest pain in the right side radiating to the right shoulder, it was 6/10 in severity, associated with shortness of breath and some nausea. When it was not getting better, she came to the ER and found to have PE. The patient says when she went to bathroom and came back, she was short of breath and she was having significant pain. Hemodynamics were stable. Denies any headache, no blurred vision, no earache. She has some runny nose and attributes it to her allergies and some mild sore throat due to postnasal drip. She has occasional cough from her asthma. She denies any loss of sense of smell or taste. She states since she works in the ER, she was tested for COVID 2 weeks ago and was negative as per the patient. No abdominal pain. Normal bowel and bladder movements. No hematuria, no blood in stools or black stools. She had some right calf pain a few days back, but that has resolved. No swelling in the legs. Admission Exam Per Admitting Provider PHYSICAL EXAMINATION: GENERAL: The patient is of moderate build, not in acute distress. VITAL SIGNS: Temperature 36.8, pulse 64, respiratory rate 19, blood pressure 107/68, oxygen 95% on room air. HEENT: Pupils equal, round, and reactive to light. Oral mucosa moist. NECK: No JVD, no neck masses. CARDIOVASCULAR: S1, S2 heard, regular rate and rhythm, no murmur, no gallop. RESPIRATORY SYSTEM: Normal AP diameter. No accessory muscle use. No wheezing, no crackles. ABDOMEN: Soft, bowel sounds present. Nontender. No distention. CENTRAL NERVOUS SYSTEM: Cranial nerves II-XII grossly intact, nonfocal. EXTREMITIES: No edema, no erythema seen. No calf tenderness present. Principal Diagnosis Acute pulmonary emboli Pulmonary Infarct Soft tissue mass left thigh Discharge Data Allergies Allergy/AdvReac Type Severity Reaction Status Date / Time aspirin Allergy Unknown Verified 04/08/20 01:22 ibuprofen [From Motrin IB] Allergy Unknown Verified 04/08/20 01:22 oxycodone [From Percodan] Allergy Unknown Verified 04/08/20 01:22 Consultations 04/08/20 01:48 ED Decision to Admit Stat 04/08/20 06:29 Consult Case Management - Discharge Planning Routine 04/09/20 08:21 Consult General Surgery Routine Procedures Performed --CTA:Right-sided pulmonary emboli with evidence for mild right-sided heart strain. A focal peripheral wedge-shaped groundglass opacity within the right middle lobe consistent with a pulmonary infarct. Remaining bibasilar patchy and linear densities are nonspecific but favor atelectasis. A pneumonia could also have a similar appearance in the appropriate clinical setting. Trace right pleural effusion. --Venous Doppler:No definite DVT within the right or left lower extremity. There are thrombosed intramuscular veins within the right calf which appear to represent superficial rather than deep veins. A 2.0 x 1.3 x 1.1 cm intramuscular hypoechoic lesion within the mid left thigh. This is indeterminate but could represent a mass. Nonemergent contrast enhanced MRI of the left thigh is recommended for further evaluation. --Leg MRI:Confirmation of the 18 x 9 x 9 mm intramuscular lesion within the mid left thigh which likely represents a small peripheral nerve sheath tumor. --Arterial Doppler:There is unchanged appearance of a 2.0 cm soft tissue nodule as compared to recent prior studies. This was better characterized on the recent MRI. There is no vascular connection to this lesion. The adjacent superficial femoral artery is normal in appearance and widely patent. Ordered Studies 04/08/20 00:27 CT angio chest PE protocol Urgent 04/08/20 08:00 US venous doppler LE BI Routine 04/08/20 18:01 MR femur LT wo/w con Routine 04/09/20 16:17 US arterial duplex LE LT Routine Hospital Course (1) Pulmonary emboli: Acute pulmonary emboli Pulmonary Infarct --CTA:Right-sided pulmonary emboli with evidence for mild right-sided heart strain. A focal peripheral wedge-shaped groundglass opacity within the right middle lobe consistent with a pulmonary infarct. Remaining bibasilar patchy and linear densities are nonspecific but favor atelectasis. A pneumonia could also have a similar appearance in the appropriate clinical setting. Trace right pleural effusion. --Venous Doppler:No definite DVT within the right or left lower extremity. There are thrombosed intramuscular veins within the right calf which appear to represent superficial rather than deep veins. A 2.0 x 1.3 x 1.1 cm intramuscular hypoechoic lesion within the mid left thigh. This is indeterminate but could represent a mass. Nonemergent contrast enhanced MRI of the left thigh is recommended for further evaluation. --No precipitating events --Hypercoagulable work-up as outpatient --Continue IV heparin>>>Transitioned to Eliquis --Continue prednisone taper --Needs repeat CT chest in 6 weeks as outpatient --Needs repeat ECHO as outpatient to evaluate dilated RV resolution Leukocytosis Secondary to Steroids Monitor Resolved (2) Abnormal finding on diagnostic imaging of extremity: Soft tissue mass left medial thigh Incidentally noted on venous duplex --Leg MRI:Confirmation of the 18 x 9 x 9 mm intramuscular lesion within the mid left thigh which likely represents a small peripheral nerve sheath tumor. --Arterial Doppler:There is unchanged appearance of a 2.0 cm soft tissue nodule as compared to recent prior studies. This was better characterized on the recent MRI. There is no vascular connection to this lesion. The adjacent superficial femoral artery is normal in appearance and widely patent. --Venous Doppler as above --Appreciate surgery input --Discussed with neurosurgery Dr.Nir Beckford--Janice Ramos --Needs follow-up with neurosurgery as outpatient in 8 weeks (3) DVT prophylaxis: Eliquis (4) Discharge planning issues: Anticipated discharge to home. Family Medicine follow-up with Dr. Hu. Total Time Total Time Spent Total Time Spent (In Minutes): 40 minutes Discharge Plan Discharge Items Patient Disposition: Home - Self-Care Reason For Visit: CHEST PAIN Discharge Diagnosis: Acute pulmonary emboli Pulmonary Infarct Soft tissue mass left thigh Activity: Per Instructions section Exercise/Sports: Gradually increase as tolerated Non-emergency contact: Primary Care Provider and Surgeon Call non-emergency contact if: you have any medication questions, your symptoms worsen, your pain is not controlled, your pain is worsening, your pain is unusu al for you, your pain is concerning for you and you have a fever Follow-up/Referrals: Dirk Hu MD [Primary Care Provider] - (Date & Time 04/17/2020 11:20 AM Provider Dirk Hu MD Department [facility] ) Mickey Haywood MD [Outside Practitioners] - (04/15/2020 1:30 PM Provider Mickey Haywood III, MD Department Neurosurgery, [address] Ramos PA Take D elevator to 2nd floor.) Diet: Heart Healthy Addtl Attending Provider Instructions: Follow-up with your primary care physician Dr. Hu on 04/17/2020 11:20 AM Follow-up with your Neurosurgeon Dr.Edward Haywood on 04/15/2020 1:30 PM as scheduled Prednisone taper Start taking prednisone 30 mg daily for 2 days, then 20 mg daily for 2 days then 10 mg daily for 2 days and stop Eliquis: Start taking apixaban (Eliquis) 10 mg twice a day for 7 days and then 5 mg twice a day Get repeat CT chest in 6 weeks as advised. Consider getting a repeat Echocardiogram to ensure resolution of right ventricular dilatation. Get hypercoagulable work-up as outpatient and consider following with your mass spectrometry specialist if needed. Seek immediate medical attention if your symptoms reoccur or worsen Pending Studies at Discharge: No Stand-Alone Forms: [employer], Smoking Cessation Medications and DC Order Prescriptions: New apixaban 5 mg (74 tabs) tablets,dose pack 10 mg PO UD Qty: 74 RF: 0 prednisone 10 mg tablet 10 mg PO UD Qty: 12 RF: 0 pantoprazole 40 mg Tablet,Delayed Release (Dr/Ec) 40 mg PO QAM Qty: 10 RF: 0 Continued albuterol sulfate 90 mcg/actuation Hfa Aerosol Inhaler 2 puff INHALATION Q6H PRN (Reason: Shortness Of Breath Or Wheezing) RF: 0 Discharge Orders: Discharge Order (Routine); Ordered 04/10/20 Ordered By: Nate Saucedo Admission Data Admit Date/Time: 04/08/20 02:35 Attending Provider: Nate Saucedo Admit Provider: Osiel Mckeon Primary Care Provider: Dirk Hu Other Providers: Osiel Mckeon ; Nico Moreau ; Teodora Garcia ; Scarlett Garner ; Rigo Bazan ; Yordy Marlow ; Barbara Loaiza ; Mana Moid ; Irving Simms Jr ; Jax Szymanski ; Christen Eckert Other Interventions: Discharge Summary Assessment (RN) Last Done: 04/10/20 15:35
== END 2020-04-10 16:02 | disposition home or self-care (01) | DRG 176 ==
LOC: ED 23:35 → 2N 04-08 02:35 → SUATTDRO 04-08 02:35 → 2N 04-08 06:13